=== PATIENT | female | born 2000 | race Caucasian/White ===

== ENCOUNTER 2020-04-13 22:05 | Emergency (ER) | payer OTHER ==
[~2020-04-13] VITALS: Ht 165.1 cm; Wt 98.0 kg
[2020-04-13 22:21] VITALS: Ht 165.1 cm; Wt 98.0 kg
[2020-04-13] MEDS ORDERED: NAPROSYN500 MG PO (23:19)
[2020-04-14 00:02] VITALS: BP 129/88
== END 2020-04-14 00:02 | disposition home or self-care (01) ==
LOC: ED 22:05
DX: S67.191A Crushing injury of left index finger, initial encounter (principal); W23.0XXA Caught, crushed, jammed, or pinched between moving objects, initial encounter; Y93.89 Activity, other specified; Y92.89 Other specified places as the place of occurrence of the external cause; Y99.8 Other external cause status
CPT/HCPCS: A4570